=== PATIENT | female | born 1985 | race Caucasian/White ===

== ENCOUNTER 2017-05-05 11:16 | Emergency (ER) | payer OTHER ==
[~2017-05-05] VITALS: Ht 165.1 cm; Wt 50.1 kg
[~2017-05-05 11:16] MED LIST: NAPROSYN500 MG PO; ULTRAM50 MG PO
[2017-05-05 12:00] VITALS: BP 109/71
== END 2017-05-05 14:00 | disposition left against medical advice (07) ==
LOC: EME 11:16
DX: K08.89 Other specified disorders of teeth and supporting structures (principal); Z53.21 Procedure and treatment not carried out due to patient leaving prior to being seen by health care provider